=== PATIENT | female | born 1935 | race Caucasian/White ===

== ENCOUNTER 2018-03-18 17:08 | Emergency (ER) | payer MEDICARE, BC ==
[~2018-03-18] VITALS: Ht 154.9 cm; Wt 63.5 kg
[~2018-03-18 17:08] MED LIST: ACETAMINOPHEN650 MG PO; AZITHROMYCIN250 MG PO; BRIMONIDINE TART5 ML OP; BRINTELLIX; CALCIUM 500+D1 EACH; CALCIUM 500+D1 EACH PO; DICYCLOMINE HCL10 MG PO; DILTIAZEM 24HR120 M1 PO; DOK100 MG; FLEXERIL5 MG PO; GABAPENTIN100 MG PO; IPRATROPIU0.2 MG/1 M NEB; LATANOPROST2.5 ML OP; LEVOTHYROXINE50 MCG PO; LIBRAX CAPSULE1 EACH PO; LIPITOR20 MG PO; LOVASTATIN10 MG PO; MELATONIN3 MG PO; MILK OF MA400 MG/5 M PO; MULTIVITAMINS1 EAC7 PO; MYRBETRIQ25 MG PO; NAMENDA10 MG; NYSTATIN100000 UNI; OS-CAL 500+D T1 EACH PO; OSCAL PO; PANTOPRAZOLE SO20 MG PO; PREDNISOLONE ACE5 ML OP; PROTONIX IV40 MG PO; PROTONIX40 MG PO; SENNA LAX8.6 MG; SYNTHROID50 MCG PO; TUMS300 MG; TYLENOL 8 HOUR650 MG PO; TYLENOL EXTRA500 MG; ULTRAM50 MG PO; ZYRTEC10 M3 PO
--- NOTE | 2018-03-18 18:30 | Diagnostic Imaging Report ---
Exams: Head and cervical spine CTs without IV contrast History: Head and cervical spine CTs of 01/13/2016, head CT of 11/29/2015 and brain MRI 10/14/2014. Comparison studies: None Technique: Axial images were obtained from the brain and cervical spine. Coronal and sagittal images reconstructed from the axial data. Dose modulation, iterative reconstruction, and/or weight based adjustment of the mA/kV was utilized to reduce the radiation dose to as low as reasonably achievable. Estimated effective dose: DLP x 0.015 Intravenous contrast: None Findings: Head CT: Scalp: No abnormalities. Bones: No fractures, blastic or lytic lesions. Extra-axial spaces: No masses. No fluid collections. Brain sulci: Mildly prominent. Ventricles: Moderate compensatory dilatation. No acute hydrocephalus. Parenchyma: No mass, acute hemorrhage or acute or chronic cortical vascular insults. A few subtle hypodensities in the supratentorial white matter are nonspecific but most compatible with chronic microvascular ischemic changes. Sellar/suprasellar region: No abnormalities. Craniocervical junction: The foramen magnum is patent. No Chiari one malformation. Cervical spine CT: Evaluation from C7 to the included superior T3 level are somewhat limited by attenuation artifact. Fractures: No acute fractures. Unchanged chronic mildly depressed superior T2 endplate deformity Soft tissues: No gross acute abnormalities. Atlantoaxial articulation: Intact. Alignment: Normal lordosis. No scoliosis. Cervicomedullary junction: No abnormalities. The foramen magnum is patent. Vertebrae: No evidence of infection. No aggressive-appearing lytic or blastic lesions. Degenerative changes: Moderately degenerated C6-C7 disc with small disc osteophyte complex which indents the thecal sac and results in only mild canal stenosis. Mildly degenerated disks at C4-C5, C5-C6. Patent foramina. Mild multilevel facet arthrosis.. Incidental findings: Calcified atherosclerosis in the cervical carotid bulbs, in the carotid siphons and in the intradural vertebral arteries. IMPRESSION: Head CT: 1. No acute abnormalities. 2. Mild generalized volume loss. 3. Mild chronic microvascular ischemic changes. 4. No changes from the previous head CT of 01/13/2016. Cervical spine CT: 1. No acute abnormalities. 2. No changes from the previous cervical spine CT of 01/13/2016. 3. Please note, cannot adequately evaluate ligament, spinal cord and or vascular abnormalities on the basis of this examination. Signed by: Dr. Dalton Corado M.D. on 03/18/2018 6:27 PM
--- NOTE | 2018-03-18 18:42 | Diagnostic Imaging Report ---
Exam: AP pelvis and right hip History: Pain Comparison: None. Findings: No fracture or malalignment. Minimal degenerative arthrosis of the right hip. No abnormal soft tissue calcification or soft tissue defect. Impression: No displaced fracture Signed by: Dr. Almas Ware M.D. on 03/18/2018 6:39 PM
--- NOTE | 2018-03-18 18:43 | Diagnostic Imaging Report ---
Exam: Left knee 3 views History: Pain Comparison: None. Findings: No acute fracture. Left total knee arthroplasty with long femoral stem component and additional side plate with cerclage wire. Impression: No acute osseous abnormality Signed by: Dr. Almas Ware M.D. on 03/18/2018 6:40 PM
[2018-03-19 00:40] VITALS: BP 181/83
== END 2018-03-18 19:35 | disposition home or self-care (01) ==
LOC: ER 17:08
DX: S16.1XXA Strain of muscle, fascia and tendon at neck level, initial encounter (principal); S00.83XA Contusion of other part of head, initial encounter; S70.01XA Contusion of right hip, initial encounter; W01.0XXA Fall on same level from slipping, tripping and stumbling without subsequent striking against object, initial encounter; Y93.9 Activity, unspecified; Y92.019 Unspecified place in single-family (private) house as the place of occurrence of the external cause; I10 Essential (primary) hypertension; E78.5 Hyperlipidemia, unspecified; K21.9 Gastro-esophageal reflux disease without esophagitis; Z85.3 Personal history of malignant neoplasm of breast
CPT/HCPCS: 70450; 72125